=== PATIENT | female | born 1990 | race Caucasian/White ===

== ENCOUNTER 2019-11-21 14:33 | Inpatient (IN) | payer SELFPAY ==
--- NOTE | 2019-11-21 14:46 | PDOC ---
History of Present Illness - General Chief Complaint: Pain Stated Complaint: ABDOMINAL PAIN Time Seen by Provider: 11/21/19 14:40 - History of Present Illness Initial Comments: 11/21/19 15:09 29F with no PMH or hx/o abdominal surgeries presents to the ED with constant right flank pain that radiates to the right groin, starting last Friday. She notes going to urgent care early last week, was given "motrin shot" and felt better for 3 days but pain returned. She reports fever/chills, constipation (last BM 5 days ago). Denies nausea, vomiting, dysuria, abnormal vaginal bleeding or discharge, hematochezia, and hematuria. PMH: as in HPI SH: see below Meds: none Allergies: NKDA Tob/Etoh/Rec drugs: occasional alcohol, neg x2 PCP: [facility] GENERAL/CONSTITUTIONAL: +fever/chills. No weakness. HEENT: No change in vision. No ear pain or discharge. No sore throat. CARDIOVASCULAR: No chest pain or shortness of breath RESPIRATORY: No cough, wheezing, or hemoptysis. GASTROINTESTINAL: No nausea, vomiting, diarrhea; +constipation. GENITOURINARY: No dysuria, frequency, or change in urination. MUSCULOSKELETAL: No joint or muscle swelling or pain. No neck or back pain. SKIN: No rash NEUROLOGIC: No headache, vertigo, loss of consciousness, or change in strength/sensation. ENDOCRINE: No increased thirst. No abnormal weight change HEMATOLOGIC/LYMPHATIC: No anemia, easy bleeding, or history of blood clots. ALLERGIC/IMMUNOLOGIC: No hives or skin allergy. PE GENERAL: Awake, alert, and fully oriented; no acute distress HEAD: No signs of trauma, normocephalic, atraumatic EYES: PERRLA, EOMI, sclera anicteric, conjunctiva clear ENT: Auricles normal inspection, hearing grossly normal, nares patent, moist mucosa, oropharynx clear without exudates. NECK: Normal ROM, supple, no LAD, JVD, or masses HEART: tachycardia, regular rhythm, normal S1/S2, no murmurs, rubs or gallops, peripheral pulses normal and equal bilaterally. LUNGS: No distress, speaks full sentences, clear to auscultation bilaterally ABDOMEN: Soft, mild tenderness in RUQ/RLQ . No guarding, no rebound. No masses. +CVA tenderness (right) PELVIC: no vaginal discharge, some clotting, cervical os closed, no cervical motion tenderness EXTREMITIES: Normal inspection, Normal range of motion, no edema. NEUROLOGICAL: Normal speech, no focal sensorimotor deficits SKIN: Warm, Dry, normal turgor, no rashes or lesions noted Assessment and Plan 1. Pyelonephritis vs infected nephrolithiasis 2. Tubo-ovarian abscess / PID 3. Appendicitis 4. /ectopic Phuc Garcia, PGY1 Emergency Medicine Past History - Medical History Allergies/Adverse Reactions: Allergies Allergy/AdvReac Type Severity Reaction Status Date / Time No Known Allergies Allergy Verified 11/21/19 14:38 Home Medications: Ambulatory Orders NK [No Known Home Medication] 11/21/19 - Reproductive History Is Patient Now?: No - Psycho-Social/Smoking History Smoking History: Never smoked Have you smoked in the past 12 months: No Information on smoking cessation initiated: No - Substance Abuse Hx (Audit-C & DAST Scrn) How often the patient has a drink containing alcohol: Never Score: In Men: 4 or > Positive; In Women: 3 or > Positive: 0 Screen Result (Pos requires Nsg. Audit-10AR): Negative In the last yr the pt used illegal drug/Rx for NonMed reason: No Score: Yes response is considered Positive: 0 Screen Result (Positive result requires Nsg. DAST-10): Negative *Physical Exam - Vital Signs Last Vital Signs Temp Pulse Resp BP Pulse Ox 102.6 F H 125 H 17 121/60 100 11/21/19 14:34 11/21/19 14:34 11/21/19 14:34 11/21/19 14:34 11/21/19 14:34 ED Treatment Course - LABORATORY CBC & Chemistry Diagram: 11/21/19 15:00 11/21/19 15:00 - RADIOLOGY Radiograph Interpretation: 11/21/19 19:07 IMPRESSION: Mild heterogenous enhancement of right kidney, with some perinephric and periureteral stranding, compatible with pyelonephritis, urinary tract infection. No hydronephrosis. One or more of the following dose reduction techniques were used: automated ex posure control, adjustment of the mA and/or kV according to patient size, use of iterative reconstructive technique. THIS DOCUMENT HAS BEEN ELECTRONICALLY SIGNED Sylvester Solorzano MD Medical Decision Making - Medical Decision Making 11/21/19 15:16 29F with no PMH or hx/o abdominal surgeries presents to the ED with constant right flank pain that radiates to the right groin, starting last Friday. She notes going to urgent care early last week, was given "motrin shot" and felt better for 3 days but pain returned. She reports fever/chills, constipation (last BM 5 days ago). On exam, +CVA tenderness (right), RUQ/RLQ tenderess, without rebound or guarding; no cervical motion tenderness Assessment and Plan 1. Pyelonephritis - CVA tenderness; +/- nephrolithiasis - possible with radiation to groin 2. Nephrolithiasis - flank pain and radiation to groin, and 2+ blood on UA 3. Tubo-ovarian abscess / PID - febrile, lower abdominal pain, less likely w/o cervical motion tenderness 4. Appendicitis - fever + RLQ tenderness, possible CVA tenderness if retrocecal appendicitis 5. /ectopic - ruled out, Upreg negative 11/21/19 16:15 - Given 975 tylenol Labs notable for: - mild leukocytosis @ 11.1 - CMP wnl - lipase wnl - UA + blood, nitrite, leukocyte esterace, >9000 bacteria 11/21/19 16:58 - blood cultures sent - started on ceftriaxone and metronidazole 11/21/19 18:09 - given 4mg morphine CT Abdomen/pelvis: Mild heterogenous enhancement of right kidney, with some perinephric and periureteral stranding, compatible with pyelonephritis, urinary tract infection. - unresolved fever, given 650 tylenol Likely pyelonephritis - pt admitted to m/s Discharge - Discharge Information Problems reviewed: Yes Clinical Impression/Diagnosis: Pyelonephritis Condition: Improved - Admission Yes - Follow up/Referral - Patient Discharge Instructions - Post Discharge Activity
[2019-11-21] MEDS ORDERED: ACETAMINOPHEN 500 MG TABLET (FP) PO ONE ×3 (15:01→18:38)
[2019-11-21] MEDS ORDERED: LACTATED RINGERS SOLUTION 1000 ML INFUS.BAG IV ONE ×2 (15:02→18:38)
[2019-11-21] MEDS ORDERED: ACETAMINOPHEN 325 MG TABLET (FP) ONE ×2 (15:10→18:43)
[2019-11-21 15:15] LABS: BASO % 0.1 % (0-2.0); HEMATOCRIT 36.9 % (32.4-45.2); HEMOGLOBIN 12.4 GM/dL (10.7-15.3); LYMPH % 5.1 % (8-40); MCH 30.7 pg (25.7-33.7); MCHC 33.6 g/dl (32.0-36.0); MEAN CELL VOLUME 91.2 fl (80-96); MEAN PLT VOLUME 8.6 fl (7.5-11.1); MONO % 7.1 % (3.8-10.2); NEUT % 87.7 % (42.8-82.8); PLATELET COUNT 149 K/MM3 (134-434); RBC 4.05 M/mm3 (3.60-5.2); WHITE BLOOD COUNT 11.1 K/mm3 (4.0-10.0)
[2019-11-21 15:31] LABS: BILIRUBIN,TOTAL 0.8 mg/dL (0.2-1); BLOOD UREA NITROGEN 15.7 mg/dL (7-18); CALCIUM 8.8 mg/dL (8.5-10.1); CREATININE 1.2 mg/dL (0.55-1.3); POTASSIUM 3.8 mmol/L (3.5-5.1); TOT PROT 7.5 g/dl (6.4-8.2)
--- NOTE | 2019-11-21 16:16 | PDOC ---
Documentation entered by Aly Juan SCRIBE, acting as scribe for Shahida Orozco MD. Shahida Orozco MD: This documentation has been prepared by the [facility] childs Alexis, SCRIBE, under my direction and personally reviewed by me in its entirety. I confirm that the documentation accurately reflects all work, treatment, procedures, and medical decision making performed by me. Attending Attestation - ED Attending Attestation I have performed the following: I have examined & evaluated the patient, The case was reviewed & discussed with the resident, I agree w/resident's findings & plan, Exceptions are as noted - Medical Decision Making 11/21/19 21:52 29 yo female w/ R sided flank pain and abd pain will eval for appendicitis vs pyleonephritis CTAP shows pyelo UA + Plan to tx w/ abx and admit for pain control/ persistent fevers. <Mode Uriarte - Last Filed: 11/21/19 21:52> - Resident Resident Name: Phuc Garcia - ED Attending Attestation I have performed the following: I have examined & evaluated the patient, The case was reviewed & discussed with the resident, I agree w/resident's findings & plan, Exceptions are as noted - HPI HPI: 11/21/19 15:08 The patient is a 29 year old female with no significant past medical history who presents to the emergency department for evaluation of right flank pain that radiates to her right groin which began one week ago. The patient reports pain is constant but worse 2 days ago. She endorses fever, chills, and constipation that began one week ago. She notes going to Urgent Care where she received a motrin shot and a normal UA. LBM: 5 days ago The patient denies chest/abdominal/back pain, cough, and shortness of breath. Denies fever, chills, nausea, vomiting, and/or any GI symptoms. Denies any dysuria, vaginal discharge, vaginal bleeding, or any symptoms. Denies any other symptoms. Allergies: NKA Social Hx: none reported - Physicial Exam PE: 11/22/19 08:33 General: uncomfortable appearing Abdomen: soft, minimal R sided ttp, no rebound, no guarding Back: no CVA tenderness <Shahida Orozco - Last Filed: 11/22/19 08:34> Discharge - Discharge Information Problems reviewed: Yes <Mode Uriarte - Last Filed: 11/21/19 21:52> - Discharge Information Problems reviewed: Yes <Shahida Orozco - Last Filed: 11/22/19 08:34> - Discharge Information Clinical Impression/Diagnosis: Pyelonephritis Condition: Improved
[2019-11-21 16:24] LABS: EPI CELLS 24 /uL (0-25.1); HCG,QUALITATIVE URINE Negative; HYALINE CASTS 2 /uL (0-3.1); PH,URINE 5.5 (5.0-8.0); URINE APPEARANCE CLEAR; URINE BACTERIA >9,000 /uL (0-1359); URINE BILIRUBIN NEGATIVE (NEGATIVE); URINE COLOR YELLOW; URINE GLUCOSE (UA) NEGATIVE (NEGATIVE); URINE KETONE 2+ (NEGATIVE); URINE LEUK ESTERASE 1+ (NEGATIVE); URINE NITRITE POSITIVE (NEGATIVE); URINE PROTEIN TRACE (NEGATIVE); URINE RBC 10 /uL (0-23.9); URINE WBC 55 /uL (0-25.8)
[2019-11-21] MEDS ORDERED: IBUPROFEN 600 MG TABLET (FP) PO ONE ×2 (16:26→17:02)
[2019-11-21] MEDS ORDERED: CEFTRIAXONE 1,000 MG in DEXTROSE 5%-WATER - 50 ML IVPB ONE (16:26)
[2019-11-21] MEDS ORDERED: CEFTRIAXONE 1 GM/50 ML BAG ONE (17:03)
[2019-11-21] MEDS ORDERED: morphine CARPU-JECT 4 MG/1 ML DISP.SYRIN IVPUSH ONE (17:30)
[2019-11-21] MEDS ORDERED: morphine SULFATE 4 MG/ML VIAL ONE (17:40)
--- NOTE | 2019-11-21 20:39 | HP ---
CHIEF COMPLAINT: right sided pain PCP: none HISTORY OF PRESENT ILLNESS: 29 y/o female with no known pmhx presents after being seen in the urgent care on friday for right sided pain, states she was given motrin no antibiotics with worsening right sided pain this am, associated with fevers and chills. Pt denies any dysuria, hematuria but states the pain aegan about 10 days ago, became much worse earleir this week and now with fevers today. Cannot quantify how high the temps were but states she felt very wamr and much sicker this am. No recent travel No sick contacts No similar symptoms in the past ER course was notable for: (1) CT with pyelo findings (2) temps 102-103 (3) Recent Travel: Denies PAST MEDICAL HISTORY: None PAST SURGICAL HISTORY: None Social History: Smoking: Denies Alcohol: Socially Drugs: Denies Allergies No Known Allergies Allergy (Verified 11/21/19 14:38) HOME MEDICATIONS: Home Medications Medication Instructions Recorded NK [No Known Home Medication] 11/21/19 REVIEW OF SYSTEMS CONSTITUTIONAL: POS fever, chills, diaphoresis, generalized weakness, NO malaise, loss of appetite, weight change HEENT: Absent: rhinorrhea, nasal congestion, throat pain, throat swelling, difficulty swallowing, mouth swelling, ear pain, eye pain, visual changes CARDIOVASCULAR: Absent: chest pain, syncope, palpitations, irregular heart rate, lightheadedness, peripheral edema RESPIRATORY: Absent: cough, shortness of breath, dyspnea with exertion, orthopnea, wheezing, stridor, hemoptysis GASTROINTESTINAL: Absent: abdominal pain, abdominal distension, nausea, vomiting, diarrhea, constipation, melena, hematochezia POS RIGHT FLANK PAIN GOING TO THE RIGHT GROIN GENITOURINARY: Absent: dysuria, frequency, urgency, hesitancy, hematuria, POS RIGHT flank pain NO genital pain MUSCULOSKELETAL: Absent: myalgia, arthralgia, joint swelling, back pain, neck pain SKIN: Absent: rash, itching, pallor HEMATOLOGIC/IMMUNOLOGIC: Absent: easy bleeding, easy bruising, lymphadenopathy, frequent infections ENDOCRINE: Absent: unexplained weight gain, unexplained weight loss, heat intolerance, cold intolerance NEUROLOGIC: Absent: headache, focal weakness or paresthesias, dizziness, unsteady gait, seizure, mental status changes, bladder or bowel incontinence PSYCHIATRIC: Absent: anxiety, depression, suicidal or homicidal ideation, hallucinations. PHYSICAL EXAMINATION Vital Signs - 24 hr 11/21/19 11/21/19 11/21/19 14:34 16:21 18:28 Temperature 102.6 F H 103.1 F H 102.9 F H Pulse Rate 125 H Pulse Rate [ 110 H 111 H Left Radial] Respiratory 17 18 18 Rate Blood Pressure 121/60 Blood Pressure 113/57 L 112/56 L [Right Arm] O2 Sat by Pulse 100 98 97 Oximetry (%) GENERAL: Awake, alert, and fully oriented, in no acute distress. HEAD: Normal with no signs of trauma. EYES: extraocular movements intact, sclera anicteric, conjunctiva clear. No lid lag. EARS, NOSE, THROAT: Ears normal, nares patent, oropharynx clear without exudates. Moist mucous membranes. NECK: Normal range of motion, supple without lymphadenopathy, JVD, or masses. LUNGS: Breath sounds equal, clear to auscultation bilaterally. No wheezes, and no crackles. No accessory muscle use. HEART: Regular rate and rhythm, normal S1 and S2 without murmur, rub or gallop. ABDOMEN: Soft, nontender, not distended, normoactive bowel sounds, no guarding, no rebound, no masses. No hepatomegaly or splenomegaly. MUSCULOSKELETAL: Normal range of motion at all joints. No bony deformities or tenderness. POS RIGHT CVA TENDERNESS UPPER EXTREMITIES: 2+ pulses, warm, well-perfused. No cyanosis. No clubbing. No peripheral edema. LOWER EXTREMITIES: 2+ pulses, warm, well-perfused. No calf tenderness. No peripheral edema. NEUROLOGICAL: Cranial nerves II-XII intact. Normal speech. Normal gait. PSYCHIATRIC: Cooperative. Good eye contact. Appropriate mood and affect. SKIN: Warm, dry, normal turgor, no rashes or lesions noted, normal capillary refill. Laboratory Results - last 24 hr 11/21/19 11/21/19 11/21/19 15:00 15:00 15:00 WBC 11.1 H RBC 4.05 Hgb 12.4 Hct 36.9 MCV 91.2 MCH 30.7 MCHC 33.6 RDW 13.0 Plt Count 149 MPV 8.6 Absolute Neuts (auto) 9.7 H Neutrophils % 87.7 H Lymphocytes % 5.1 L Monocytes % 7.1 Eosinophils % 0.0 Basophils % 0.1 Nucleated RBC % 0 Sodium 136 Potassium 3.8 Chloride 105 Carbon Dioxide 22 Anion Gap 9 BUN 15.7 Creatinine 1.2 Est GFR (CKD-EPI)AfAm 70.73 Est GFR (CKD-EPI)NonAf 61.02 Random Glucose 118 H Lactic Acid 1.2 Calcium 8.8 Total Bilirubin 0.8 AST 30 ALT 25 Alkaline Phosphatase 60 Total Protein 7.5 Albumin 4.0 Lipase 132 Urine Color Urine Appearance Urine pH Ur Specific [place] Urine Protein Urine Glucose (UA) Urine Ketones Urine Blood Urine Nitrite Urine Bilirubin Urine Urobilinogen Ur Leukocyte Esterase Urine WBC (Auto) Urine RBC (Auto) Urine Casts (Auto) U Epithel Cells (Auto) Urine Bacteria (Auto) Urine HCG, Qual 11/21/19 16:00 WBC RBC Hgb Hct MCV MCH MCHC RDW Plt Count MPV Absolute Neuts (auto) Neutrophils % Lymphocytes % Monocytes % Eosinophils % Basophils % Nucleated RBC % Sodium Potassium Chloride Carbon Dioxide Anion Gap BUN Creatinine Est GFR (CKD-EPI)AfAm Est GFR (CKD-EPI)NonAf Random Glucose Lactic Acid Calcium Total Bilirubin AST ALT Alkaline Phosphatase Total Protein Albumin Lipase Urine Color Yellow Urine Appearance Clear Urine pH 5.5 Ur Specific [place] 1.021 Urine Protein Trace Urine Glucose (UA) Negative Urine Ketones 2+ H Urine Blood 2+ H Urine Nitrite Positive H Urine Bilirubin Negative Urine Urobilinogen 1.0 Ur Leukocyte Esterase 1+ H Urine WBC (Auto) 55 Urine RBC (Auto) 10 Urine Casts (Auto) 2 U Epithel Cells (Auto) 24 Urine Bacteria (Auto) >9,000 Urine HCG, Qual Negative CT: POS RIGHT PERINEPHRIC STRANDING PER ED -- FINAL STUDY PENDING ASSESSMENT/PLAN: 29 Y/O FEMALE ADMITTED WITH RIGHT PYELONEPHRITIS *RIGHT PYELONEPHRITIS -- PLACE ON ROCEHIN TYLENOL FOR FEVERS PAIN CONTROL LACTIC ACID IS LOW GENEROUS HYDRATION FOR TACHYCARDIA AND INSENSIBLE LOSSES F/U FINAL CT READING *TACHYCARDIA - SECONDARY TO VOLUME CONTRACTION, WILL HYDRATE *LEUKOCYTOSIS - SECONDARY TO PYELO *DVT PROPHY- EARLY AMBULATION. SCDS WHILE IN BED Family Medical History Family History: Denies Problem List - Problem (1) Pyelonephritis Code(s): N12 - TUBULO-INTERSTITIAL NEPHRITIS, NOT SPCF ACUTE OR CHRONIC Visit type - Emergency Visit Emergency Visit: Yes ED Registration Date: 11/21/19 Care time: The patient presented to the Emergency Department on the above date and was hospitalized for further evaluation of their emergent condition. - New Patient This patient is new to me today: Yes Date on this admission: 11/21/19 - Critical Care Critical Care patient: No
[2019-11-21] MEDS: SODIUM CHLORIDE 1,000 ML IV SCH (21:14)
--- NOTE | 2019-11-21 21:52 | PDOC ---
Documentation entered by Aly Juan SCRIBE, acting as scribe for Mode Uriarte DO. Mode Uriarte DO: This documentation has been prepared by the josueibeDrake Alexis, SCRIBE, under my direction and personally reviewed by me in its entirety. I confirm that the documentation accurately reflects all work, treatment, procedures, and medical decision making performed by me. *Physical Exam - Vital Signs Last Vital Signs Temp Pulse Resp BP Pulse Ox 103.1 F H 110 H 18 113/57 L 98 11/21/19 16:21 11/21/19 16:21 11/21/19 16:21 11/21/19 16:21 11/21/19 16:21 ED Treatment Course - LABORATORY CBC & Chemistry Diagram: 11/21/19 15:00 11/21/19 15:00 - ADDITIONAL ORDERS Additional order review: Laboratory Results 11/21/19 11/21/19 11/21/19 16:00 15:00 15:00 Sodium 136 Potassium 3.8 Chloride 105 Carbon Dioxide 22 Anion Gap 9 BUN 15.7 Creatinine 1.2 Est GFR (CKD-EPI)AfAm 70.73 Est GFR (CKD-EPI)NonAf 61.02 Random Glucose 118 H Lactic Acid 1.2 Calcium 8.8 Total Bilirubin 0.8 AST 30 ALT 25 Alkaline Phosphatase 60 Total Protein 7.5 Albumin 4.0 Lipase 132 Urine Color Yellow Urine Appearance Clear Urine pH 5.5 Ur Specific [place] 1.021 Urine Protein Trace Urine Glucose (UA) Negative Urine Ketones 2+ H Urine Blood 2+ H Urine Nitrite Positive H Urine Bilirubin Negative Urine Urobilinogen 1.0 Ur Leukocyte Esterase 1+ H Urine WBC (Auto) 55 Urine RBC (Auto) 10 Urine Casts (Auto) 2 U Epithel Cells (Auto) 24 Urine Bacteria (Auto) >9,000 Urine HCG, Qual Negative 11/21/19 15:00 RBC 4.05 MCV 91.2 MCHC 33.6 RDW 13.0 MPV 8.6 Neutrophils % 87.7 H Lymphocytes % 5.1 L Monocytes % 7.1 Eosinophils % 0.0 Basophils % 0.1 - Medications Given in the ED: ED Medications Discontinued Medications Generic Name Dose Route Start Last Admin Trade Name Freq PRN Reason Stop Dose Admin Acetaminophen 1,000 mg 11/21/19 15:01 09/06/20 15:17 Tylenol - PO 11/21/19 15:02 Not Given ONCE ONE Acetaminophen 975 mg 11/21/19 15:02 11/21/19 15:16 Tylenol - PO 11/21/19 15:03 975 mg ONCE ONE Administration Lactated Ringer's 1,000 ml 11/21/19 15:02 11/21/19 15:16 Lactated Ringers Solution IV 11/21/19 15:03 1,000 ml NOW ONE Administration Medical Decision Making - Medical Decision Making 11/21/19 16:31 29 yo female with 1 week of worsening right sided abdominal and flank pain without urinary symptoms Sign out follow up imaging and disposition appropriate R sided CVA tenderness and Mcburney's point tenderness mild Positive rovsing's signs Pyelonephritis vs appendicitis Patient is febrile tachycardic Will plan for addition antipyretics Motrin 600mg Reassess pain control IV anti for positive UA
[2019-11-22 00:07] VITALS: BMI 21.4
[2019-11-22] MEDS: ACETAMINOPHEN 325 MG TABLET (FP) PO PRN ×4 (00:11→18:58)
[2019-11-22] MEDS ORDERED: morphine SULFATE 4 MG/ML VIAL IVPUSH ONE (06:31)
[2019-11-22 08:38] LABS: HEMATOCRIT 33.1 % (32.4-45.2); MCH 30.1 pg (25.7-33.7); MCHC 33.3 g/dl (32.0-36.0); MEAN CELL VOLUME 90.6 fl (80-96); MEAN PLT VOLUME 8.6 fl (7.5-11.1); PLATELET COUNT 125 K/MM3 (134-434); RBC 3.65 M/mm3 (3.60-5.2); WHITE BLOOD COUNT 10.6 K/mm3 (4.0-10.0)
[2019-11-22 08:56] LABS: BLOOD UREA NITROGEN 10.7 mg/dL (7-18); CALCIUM 8.2 mg/dL (8.5-10.1); CREATININE 0.8 mg/dL (0.55-1.3); POTASSIUM 3.8 mmol/L (3.5-5.1)
[2019-11-22] MEDS ORDERED: DEXTROSE 5%-WATER - 50 ML IVPB ONE (09:45)
[2019-11-22] MEDS ORDERED: cefTRIAXone SODIUM 1 GM VIAL ONE (09:45)
[2019-11-22] MEDS: CEFTRIAXONE 1 GM in DEXTROSE 5%-WATER - 50 ML IVPB SCH (09:50)
[2019-11-22] MEDS: SODIUM CHLORIDE 1,000 ML IV SCH ×2 (09:51→22:22)
--- NOTE | 2019-11-22 10:50 | PN ---
Physical Exam: SUBJECTIVE: Patient seen and examined at bedside- patient states she is feeling better; she received morphine overnight for pain and now her pain is like a 2- 3/10 she denies any urinary symptoms; she is starting to get her appetite back- she denies any CP/SOB/NV she remained afebrile overnight OBJECTIVE: Vital Signs Period Temp Pulse Resp BP Sys/Alvarez Pulse Ox Last 24 Hr 98.1 F-103.1 F 72-125 16-20 91-121/40-68 97-100 GENERAL: The patient is awake, alert, and fully oriented, in no acute distress. EYES: PEERLA; EOMI; no scleral icterus NECK: no JVD; no lymphadenopathy LUNGS: CTA B.L no rales, rhonchi or wheezing HEART: RRR, S1, S2 without murmur, rub or gallop. ABDOMEN: Soft, NT ND +BS in all 4 quadrants MUSCULOSKELETAL: .no R sided CVA tenderness; EXTREMITIES: 2+ pulses, warm, well-perfused, no edema. NEUROLOGICAL: Cranial nerves II through XII grossly intact. Normal speech, gait not observed. PSYCH: Normal mood, normal affect. SKIN: Warm, dry, normal turgor, no rashes or lesions noted Laboratory Results - last 24 hr 11/21/19 11/21/19 11/21/19 15:00 15:00 15:00 WBC 11.1 H RBC 4.05 Hgb 12.4 Hct 36.9 MCV 91.2 MCH 30.7 MCHC 33.6 RDW 13.0 Plt Count 149 MPV 8.6 Absolute Neuts (auto) 9.7 H Neutrophils % 87.7 H Lymphocytes % 5.1 L Monocytes % 7.1 Eosinophils % 0.0 Basophils % 0.1 Nucleated RBC % 0 Sodium 136 Potassium 3.8 Chloride 105 Carbon Dioxide 22 Anion Gap 9 BUN 15.7 Creatinine 1.2 Est GFR (CKD-EPI)AfAm 70.73 Est GFR (CKD-EPI)NonAf 61.02 Random Glucose 118 H Lactic Acid 1.2 Calcium 8.8 Total Bilirubin 0.8 AST 30 ALT 25 Alkaline Phosphatase 60 Total Protein 7.5 Albumin 4.0 Lipase 132 Urine Color Urine Appearance Urine pH Ur Specific [place] Urine Protein Urine Glucose (UA) Urine Ketones Urine Blood Urine Nitrite Urine Bilirubin Urine Urobilinogen Ur Leukocyte Esterase Urine WBC (Auto) Urine RBC (Auto) Urine Casts (Auto) U Epithel Cells (Auto) Urine Bacteria (Auto) Urine HCG, Qual 11/21/19 11/22/19 11/22/19 16:00 07:50 07:50 WBC 10.6 H RBC 3.65 Hgb 11.0 Hct 33.1 MCV 90.6 MCH 30.1 MCHC 33.3 RDW 13.0 Plt Count 125 L MPV 8.6 Absolute Neuts (auto) Neutrophils % Lymphocytes % Monocytes % Eosinophils % Basophils % Nucleated RBC % Sodium 141 Potassium 3.8 Chloride 110 H Carbon Dioxide 22 Anion Gap 9 BUN 10.7 Creatinine 0.8 Est GFR (CKD-EPI)AfAm 115.47 Est GFR (CKD-EPI)NonAf 99.63 Random Glucose 104 Lactic Acid Calcium 8.2 L Total Bilirubin AST ALT Alkaline Phosphatase Total Protein Albumin Lipase Urine Color Yellow Urine Appearance Clear Urine pH 5.5 Ur Specific [place] 1.021 Urine Protein Trace Urine Glucose (UA) Negative Urine Ketones 2+ H Urine Blood 2+ H Urine Nitrite Positive H Urine Bilirubin Negative Urine Urobilinogen 1.0 Ur Leukocyte Esterase 1+ H Urine WBC (Auto) 55 Urine RBC (Auto) 10 Urine Casts (Auto) 2 U Epithel Cells (Auto) 24 Urine Bacteria (Auto) >9,000 Urine HCG, Qual Negative Active Medications Generic Name Dose Route Start Last Admin Trade Name Guyq PRN Reason Stop Dose Admin Acetaminophen 650 mg 11/21/19 20:24 11/22/19 03:59 Tylenol - PO 650 mg Q4H PRN Administration FEVER Ceftriaxone Sodium 1 gm/ 50 mls @ 100 mls/hr 11/22/19 10:00 11/22/19 09:50 Dextrose IVPB 100 mls/hr DAILY CAMRYN Administration Protocol Sodium Chloride 1,000 mls @ 100 mls/hr 11/21/19 20:45 11/22/19 09:51 Normal Saline - IV 100 mls/hr ASDIR CAMRYN Administration ASSESSMENT/PLAN: 29 y/o female with no known pmhx presents after being seen in the urgent care on friday for right sided back pain, with associated fever and chills found to sepsis 2/2 pyelonephritis # Sepsis 2/2 Pyelonephritis AB/Pelvis CT shows minimal stranding around the right kindye; no hydro or stones present; moderate retained stool in colon -c/w ceftriaxone -f/u urine cx -can decrease IVF given that patient is now eating/drinking feeling better -morphine and tylenol PRN for pain -monitor hemodynamics -leukocytosis improving -bowel regimen f/e/n IVF monitor electrolytes regular diet dvt ppx: scds Problem List - Problems (1) Pyelonephritis Code(s): N12 - TUBULO-INTERSTITIAL NEPHRITIS, NOT SPCF ACUTE OR CHRONIC Visit type - Emergency Visit Emergency Visit: Yes ED Registration Date: 11/21/19 Care time: The patient presented to the Emergency Department on the above date and was hospitalized for further evaluation of their emergent condition. - New Patient This patient is new to me today: Yes Date on this admission: 11/22/19 - Critical Care Critical Care patient: No ATTENDING PHYSICIAN STATEMENT I saw and evaluated the patient. I reviewed the resident's note and discussed the case with the resident. I agree with the resident's findings and plan as documented. SUBJECTIVE: OBJECTIVE: ASSESSMENT AND PLAN:
[2019-11-22] MEDS: SENNOSIDES 8.6MG TABLET (FP) PO SCH ×2 (11:42→22:22)
--- NOTE | 2019-11-22 12:18 | PN ---
Teaching Attending Note Name of Resident: Sandra Morrison ATTENDING PHYSICIAN STATEMENT I saw and evaluated the patient. I reviewed the resident's note and discussed the case with the resident. I agree with the resident's findings and plan as documented. SUBJECTIVE: OBJECTIVE: ASSESSMENT AND PLAN: 29 Y/O female admitted with female admitted with acute right pyelonephritis *Right pyelonephritis - Continue on Rocephin/anti-pyretics/IV fluids - pain control *Tachycardia- likely secondary to volume contraction , will hydrate *Leukocytosis - likely secondary to above - repeat labs in AM *DVT Prophylaxisis- ok to ambulate
[2019-11-22] MEDS ORDERED: ACETAMINOPHEN 1000 MG/100 ML VIAL (NON FORMULARY) IVPB ONE (13:50)
[2019-11-22] MEDS ORDERED: morphine SULFATE 4 MG/ML VIAL IVPUSH PRN (21:40)
[2019-11-23] MEDS ORDERED: MORPHINE SULFATE 2 MG/ML VIAL IVPUSH PRN (03:29)
[2019-11-23] MEDS: ACETAMINOPHEN 325 MG TABLET (FP) PO PRN ×2 (05:59→13:02)
[2019-11-23] MEDS ORDERED: POLYETHYLENE GLYCOL 3350 119 GM BTL PO ONE (08:24)
[2019-11-23] MEDS ORDERED: MORPHINE SULFATE 2 MG/ML VIAL IM PRN (08:27)
[2019-11-23 08:43] LABS: BASO % 0.1 % (0-2.0); EOS % 0.2 % (0-4.5); HEMATOCRIT 31.4 % (32.4-45.2); HEMOGLOBIN 10.5 GM/dL (10.7-15.3); LYMPH % 12.4 % (8-40); MCH 29.9 pg (25.7-33.7); MCHC 33.3 g/dl (32.0-36.0); MEAN PLT VOLUME 8.7 fl (7.5-11.1); MONO % 11.6 % (3.8-10.2); NEUT % 75.7 % (42.8-82.8); PLATELET COUNT 127 K/MM3 (134-434); RDW 12.7 % (11.6-15.6); WHITE BLOOD COUNT 8.5 K/mm3 (4.0-10.0)
[2019-11-23 08:48] LABS: POTASSIUM 3.5 mmol/L (3.5-5.1)
[2019-11-23 09:00] LABS: ALBUMIN 2.9 g/dl (3.4-5.0); BILIRUBIN,TOTAL 0.8 mg/dL (0.2-1); BLOOD UREA NITROGEN 7.8 mg/dL (7-18); CALCIUM 8.1 mg/dL (8.5-10.1); CREATININE 0.8 mg/dL (0.55-1.3); MAGNESIUM 2.3 mg/dL (1.8-2.4); PHOSPHOROUS 2.5 mg/dL (2.5-4.9); TOT PROT 5.9 g/dl (6.4-8.2)
[2019-11-23] MEDS ORDERED: DEXTROSE 5%-WATER - 50 ML IVPB ONE (09:10)
[2019-11-23] MEDS ORDERED: cefTRIAXone SODIUM 1 GM VIAL ONE (09:10)
[2019-11-23] MEDS: CEFTRIAXONE 1 GM in DEXTROSE 5%-WATER - 50 ML IVPB SCH (09:13)
[2019-11-23] MEDS: DOCUSATE SODIUM 100 MG CAPSULE (FP) PO SCH (09:13)
[2019-11-23] MEDS: SENNOSIDES 8.6MG TABLET (FP) PO SCH ×2 (09:13→21:56)
[2019-11-23] MEDS: SODIUM CHLORIDE 1,000 ML IV SCH (13:02)
--- NOTE | 2019-11-23 13:21 | PN ---
Physical Exam: SUBJECTIVE: Patient seen and examined, in no acute distress, speaking in full sentences. Denies any urinary pain, discharge, blood. Endorses strange urinary odor. Denies CP, SoB, fever/chils. OBJECTIVE: Vital Signs Period Temp Pulse Resp BP Sys/Alvarez Pulse Ox Last 24 Hr 98.5 F-103.0 F 71-115 20-20 96-126/51-72 98-100 GENERAL: The patient is awake, alert, and fully oriented, in no acute distress. HEAD: Normal with no signs of trauma. EYES: PERRL, extraocular movements intact, sclera anicteric, conjunctiva clear. No ptosis. ENT: Ears normal, nares patent, oropharynx clear without exudates, moist mucous membranes. NECK: Trachea midline, full range of motion, supple. LUNGS: Breath sounds equal, clear to auscultation bilaterally, no wheezes, no crackles, no accessory muscle use. HEART: Regular rate and rhythm, S1, S2 without murmur, rub or gallop. ABDOMEN: Right sided CVA tenderness, tenderness in RLQ, no signs of peritonitis EXTREMITIES: 2+ pulses, warm, well-perfused, no edema. NEUROLOGICAL: Normal speech, gait not observed. PSYCH: Normal mood, normal affect. SKIN: Warm, dry, normal turgor, no rashes or lesions noted Laboratory Results - last 24 hr CBC, BMP 11/23/19 08:06 11/23/19 08:06 Active Medications Generic Name Dose Route Start Last Admin Trade Name Freq PRN Reason Stop Dose Admin Acetaminophen 650 mg 11/21/19 20:24 11/23/19 13:02 Tylenol - PO 650 mg Q4H PRN Administration FEVER Docusate Sodium 100 mg 11/23/19 10:00 11/23/19 09:13 Colace - PO 100 mg DAILY CAMRYN Administration Sodium Chloride 1,000 mls @ 100 mls/hr 11/21/19 20:45 11/23/19 13:02 Normal Saline - IV 100 mls/hr ASDIR CAMRYN Administration Cefepime HCl 1 gm/ Dextrose 100 mls @ 100 mls/hr 11/23/19 18:00 IVPB Q8H-IV CAMRYN Protocol Morphine Sulfate 2 mg 11/23/19 12:24 Morphine Sulfate IV Q6H PRN PAIN LEVEL 7 - 10 Senna 1 tab 11/22/19 11:00 11/23/19 09:13 Senna - PO 1 tab BID CAMRYN Administration ASSESSMENT/PLAN: 29 y/o female with PMHx of previous UTI in April 2019 presents after being seen in the urgent care for right sided back pain, with associated fever and chills found to septic 2/2 pyelonephritis Sepsis 2/2 Pyelonephritis -Currently Afebrile -CT Abdomen Pelvs: Minimal stranding around the right kidney; no hydronephrosis or stones present; moderate retained stool in colon -Per ID: Start Cefepime -FU Urine Cx -FU Chl/Gilbert Cx -Morphine 2mg Q6 PRN -Tylenol 650mg PRN -Monitor Leukocytosis, currently resolved. Anemia -Monitor Hgb -Possibly dilutional Constipation -Likely 2/2 Morphine -Senna BID -Colace FEN IVF: NS Monitor Lytes Regular diet PPx: scds Visit type - Emergency Visit Emergency Visit: No - New Patient This patient is new to me today: Yes Date on this admission: 11/23/19 - Critical Care Critical Care patient: No - Discharge Referral Referred to [facility] Med P.C.: No ATTENDING PHYSICIAN STATEMENT I saw and evaluated the patient. I reviewed the resident's note and discussed the case with the resident. I agree with the resident's findings and plan as documented. SUBJECTIVE: OBJECTIVE: ASSESSMENT AND PLAN:
--- NOTE | 2019-11-23 14:28 | PN ---
Progress Note (short form) - Note Progress Note: ID CONSULT DICTATED ACUTE R PYELONEPHRITIS UTI FEVER/LEUKOCYTOSIS IMPROVED THROMBOCYTOPENIA PENDING C/S EMPIRIC CEFEPIME
[2019-11-23] MEDS ORDERED: CEFEPIME HCL 1 GM VIAL (RESTRICTED TO ID) ONE (17:46)
[2019-11-23] MEDS ORDERED: DEXTROSE 5%-WATER 100 ML IVPB ONE (17:46)
[2019-11-23] MEDS: MORPHINE SULFATE 2 MG/ML VIAL IV PRN (17:58)
[2019-11-23] MEDS: CEFEPIME 1 GM in DEXTROSE 5%-WATER 100 ML IVPB SCH (17:58)
--- NOTE | 2019-11-23 19:05 | PN ---
Teaching Attending Note Name of Resident: Arvind Ortiz ATTENDING PHYSICIAN STATEMENT I saw and evaluated the patient. I reviewed the resident's note and discussed the case with the resident. I agree with the resident's findings and plan as documented. SUBJECTIVE: Patient is c/o right CVA tenderness. OBJECTIVE: Vital Signs Temperature 99.5 F 11/23/19 16:51 Pulse Rate 80 11/23/19 16:51 Respiratory Rate 20 11/23/19 16:51 Blood Pressure 106/60 11/23/19 16:51 O2 Sat by Pulse Oximetry (%) 76 L 11/23/19 16:51 PE: right CVA tenderness rest per resident's note CBCD WBC 8.5 K/mm3 (4.0-10.0) 11/23/19 08:06 RBC 3.50 M/mm3 (3.60-5.2) L 11/23/19 08:06 Hgb 10.5 GM/dL (10.7-15.3) L 11/23/19 08:06 Hct 31.4 % (32.4-45.2) L 11/23/19 08:06 MCV 90.0 fl (80-96) 11/23/19 08:06 MCHC 33.3 g/dl (32.0-36.0) 11/23/19 08:06 RDW 12.7 % (11.6-15.6) 11/23/19 08:06 Plt Count 127 K/MM3 (134-434) L 11/23/19 08:06 MPV 8.7 fl (7.5-11.1) 11/23/19 08:06 CMP Sodium 138 mmol/L (136-145) 11/23/19 08:06 Potassium 3.5 mmol/L (3.5-5.1) 11/23/19 08:06 Chloride 107 mmol/L (98-107) 11/23/19 08:06 Carbon Dioxide 22 mmol/L (21-32) 11/23/19 08:06 Anion Gap 9 MMOL/L (8-16) 11/23/19 08:06 BUN 7.8 mg/dL (7-18) 11/23/19 08:06 Creatinine 0.8 mg/dL (0.55-1.3) 11/23/19 08:06 Random Glucose 88 mg/dL (74-106) 11/23/19 08:06 Calcium 8.1 mg/dL (8.5-10.1) L 11/23/19 08:06 Total Bilirubin 0.8 mg/dL (0.2-1) 11/23/19 08:06 AST 19 U/L (15-37) 11/23/19 08:06 ALT 21 U/L (13-61) 11/23/19 08:06 Alkaline Phosphatase 45 U/L (45-117) 11/23/19 08:06 Total Protein 5.9 g/dl (6.4-8.2) L 11/23/19 08:06 Albumin 2.9 g/dl (3.4-5.0) L 11/23/19 08:06 Microbiology 11/21/19 16:48 Blood - Peripheral Venous Blood Culture - Preliminary NO GROWTH OBTAINED AFTER 48 HOURS, INCUBATION TO CONTINUE FOR 3 DAYS. 11/21/19 16:48 Blood - Peripheral Venous Blood Culture - Preliminary NO GROWTH OBTAINED AFTER 48 HOURS, INCUBATION TO CONTINUE FOR 3 DAYS. 11/21/19 16:00 Urine - Urine Clean Catch Urine Culture - Preliminary Non Lactose Fermenting Gnb ASSESSMENT AND PLAN: 29 y/o female with PMHx of previous UTI in April 2019 presents after being seen in the urgent care for right sided back pain, with associated fever and chills found to septic 2/2 pyelonephritis #Sepsis due to Pyelonephritis on I V rocephin , Id on the case , follow the cx #Anemia :Monitor Hgb #Constipation :Senna ,Colace continue PPx: scds
[2019-11-24] MEDS ORDERED: DEXTROSE 5%-WATER 100 ML IVPB ONE ×3 (01:27→15:49)
[2019-11-24] MEDS ORDERED: CEFEPIME HCL 1 GM VIAL (RESTRICTED TO ID) ONE ×3 (01:27→15:49)
[2019-11-24] MEDS: CEFEPIME 1 GM in DEXTROSE 5%-WATER 100 ML IVPB SCH ×2 (01:43→09:17)
[2019-11-24] MEDS: MORPHINE SULFATE 2 MG/ML VIAL IV PRN (01:43)
[2019-11-24] MEDS: ACETAMINOPHEN 325 MG TABLET (FP) PO PRN ×2 (02:59→09:25)
[2019-11-24] MEDS: SODIUM CHLORIDE 1,000 ML IV SCH ×2 (03:26→14:23)
[2019-11-24] MEDS ORDERED: POLYETHYLENE GLYCOL 3350 119 GM BTL PO PRN (06:35)
[2019-11-24 08:24] LABS: BASO % 0.1 % (0-2.0); HEMATOCRIT 36.4 % (32.4-45.2); LYMPH % 22.5 % (8-40); MEAN CELL VOLUME 90.8 fl (80-96); MEAN PLT VOLUME 8.5 fl (7.5-11.1); MONO % 11.6 % (3.8-10.2); NEUT % 64.8 % (42.8-82.8); PLATELET COUNT 188 K/MM3 (134-434); RBC 4.01 M/mm3 (3.60-5.2); RDW 13.1 % (11.6-15.6); WHITE BLOOD COUNT 6.9 K/mm3 (4.0-10.0)
[2019-11-24 08:31] LABS: ALBUMIN 3.3 g/dl (3.4-5.0); BILIRUBIN,TOTAL 0.4 mg/dL (0.2-1); BLOOD UREA NITROGEN 6.3 mg/dL (7-18); CALCIUM 8.9 mg/dL (8.5-10.1); CREATININE 0.8 mg/dL (0.55-1.3); POTASSIUM 4.4 mmol/L (3.5-5.1); TOT PROT 6.9 g/dl (6.4-8.2)
[2019-11-24] MEDS: SENNOSIDES 8.6MG TABLET (FP) PO SCH (09:17)
[2019-11-24] MEDS: DOCUSATE SODIUM 100 MG CAPSULE (FP) PO SCH (09:17)
[2019-11-24] MEDS ORDERED: CEFTRIAXONE 2 GM in DEXTROSE 5%-WATER 100 ML IVPB ONE (10:00)
--- NOTE | 2019-11-24 13:45 | PN ---
Physical Exam: SUBJECTIVE: Patient seen and examined OBJECTIVE: Vital Signs Period Temp Pulse Resp BP Sys/Alvarez Pulse Ox Last 24 Hr 98.3 F-99.5 F 72-85 20-20 105-110/58-60 96-99 GENERAL: The patient is awake, alert, and fully oriented, in no acute distress. HEAD: Normal with no signs of trauma. EYES: PERRL, extraocular movements intact, sclera anicteric, conjunctiva clear. No ptosis. ENT: Ears normal, nares patent, oropharynx clear without exudates, moist mucous membranes. NECK: Trachea midline, full range of motion, supple. LUNGS: Breath sounds equal, clear to auscultation bilaterally, no wheezes, no crackles, no accessory muscle use. HEART: Regular rate and rhythm, S1, S2 without murmur, rub or gallop. ABDOMEN: Soft, nontender, nondistended, normoactive bowel sounds, no guarding, no rebound, no hepatosplenomegaly, no masses. EXTREMITIES: 2+ pulses, warm, well-perfused, no edema. NEUROLOGICAL: Cranial nerves II through XII grossly intact. Normal speech, gait not observed. PSYCH: Normal mood, normal affect. SKIN: Warm, dry, normal turgor, no rashes or lesions noted Laboratory Results - last 24 hr 11/21/19 11/24/19 11/24/19 16:00 07:20 07:20 WBC 6.9 RBC 4.01 Hgb 12.0 Hct 36.4 D MCV 90.8 MCH 30.0 MCHC 33.0 RDW 13.1 Plt Count 188 D MPV 8.5 Absolute Neuts (auto) 4.5 Neutrophils % 64.8 Lymphocytes % 22.5 D Monocytes % 11.6 H Eosinophils % 1.0 D Basophils % 0.1 Nucleated RBC % 0 Sodium 140 Potassium 4.4 Chloride 108 H Carbon Dioxide 26 Anion Gap 6 L BUN 6.3 L Creatinine 0.8 Est GFR (CKD-EPI)AfAm 115.47 Est GFR (CKD-EPI)NonAf 99.63 Random Glucose 85 Calcium 8.9 Total Bilirubin 0.4 AST 19 ALT 27 Alkaline Phosphatase 56 Total Protein 6.9 Albumin 3.3 L C. trachomatis (WYATT) Negative N. gonorrhoeae (WYATT) Negative Active Medications Generic Name Dose Route Start Last Admin Trade Name Freq PRN Reason Stop Dose Admin Acetaminophen 650 mg 11/21/19 20:24 11/24/19 09:25 Tylenol - PO 650 mg Q4H PRN Administration FEVER Docusate Sodium 100 mg 11/23/19 10:00 11/24/19 09:17 Colace - PO 100 mg DAILY CAMRYN Administration Sodium Chloride 1,000 mls @ 100 mls/hr 11/21/19 20:45 11/24/19 03:26 Normal Saline - IV 100 mls/hr ASDIR CAMRYN Administration Cefepime HCl 1 gm/ Dextrose 100 mls @ 100 mls/hr 11/23/19 18:00 11/24/19 09:17 IVPB 100 mls/hr Q8H-IV CAMRYN Administration Protocol Morphine Sulfate 2 mg 11/23/19 12:24 11/24/19 01:43 Morphine Sulfate IV 2 mg Q6H PRN Administration PAIN LEVEL 7 - 10 Polyethylene Glycol 17 gm 11/24/19 06:35 11/24/19 09:24 Miralax (For Daily Use) - PO 17 gm BID PRN Administration CONSTIPATION Senna 1 tab 11/22/19 11:00 11/24/19 09:17 Senna - PO 1 tab BID CAMRYN Administration ASSESSMENT/PLAN: ATTENDING PHYSICIAN STATEMENT I saw and evaluated the patient. I reviewed the resident's note and discussed the case with the resident. I agree with the resident's findings and plan as documented. SUBJECTIVE: OBJECTIVE: ASSESSMENT AND PLAN:
[2019-11-24 15:21] VITALS: BP 109/65; PULSE 82; TEMP 98.2
[2019-11-24] MEDS ORDERED: CEFEPIME 1 GM in DEXTROSE 5%-WATER 100 ML IVPB SCH (16:00)
--- NOTE | 2019-11-24 17:29 | PN ---
Teaching Attending Note Name of Resident: Arvind Ortiz ATTENDING PHYSICIAN STATEMENT I saw and evaluated the patient. I reviewed the resident's note and discussed the case with the resident. I agree with the resident's findings and plan as documented. SUBJECTIVE: Patient is feeling better today . less pain 3-410 OBJECTIVE: Vital Signs Temperature 98.2 F 11/24/19 15:00 Pulse Rate 82 11/24/19 15:00 Respiratory Rate 20 11/24/19 15:00 Blood Pressure 109/65 11/24/19 15:00 O2 Sat by Pulse Oximetry (%) 100 11/24/19 15:00 PE: per resident's note less Cva tenderness 10 on the right side CBCD WBC 6.9 K/mm3 (4.0-10.0) 11/24/19 07:20 RBC 4.01 M/mm3 (3.60-5.2) 11/24/19 07:20 Hgb 12.0 GM/dL (10.7-15.3) 11/24/19 07:20 Hct 36.4 % (32.4-45.2) D 11/24/19 07:20 MCV 90.8 fl (80-96) 11/24/19 07:20 MCHC 33.0 g/dl (32.0-36.0) 11/24/19 07:20 RDW 13.1 % (11.6-15.6) 11/24/19 07:20 Plt Count 188 K/MM3 (134-434) D 11/24/19 07:20 MPV 8.5 fl (7.5-11.1) 11/24/19 07:20 CMP Sodium 140 mmol/L (136-145) 11/24/19 07:20 Potassium 4.4 mmol/L (3.5-5.1) 11/24/19 07:20 Chloride 108 mmol/L (98-107) H 11/24/19 07:20 Carbon Dioxide 26 mmol/L (21-32) 11/24/19 07:20 Anion Gap 6 MMOL/L (8-16) L 11/24/19 07:20 BUN 6.3 mg/dL (7-18) L 11/24/19 07:20 Creatinine 0.8 mg/dL (0.55-1.3) 11/24/19 07:20 Random Glucose 85 mg/dL (74-106) 11/24/19 07:20 Calcium 8.9 mg/dL (8.5-10.1) 11/24/19 07:20 Total Bilirubin 0.4 mg/dL (0.2-1) 11/24/19 07:20 AST 19 U/L (15-37) 11/24/19 07:20 ALT 27 U/L (13-61) 11/24/19 07:20 Alkaline Phosphatase 56 U/L (45-117) 11/24/19 07:20 Total Protein 6.9 g/dl (6.4-8.2) 11/24/19 07:20 Albumin 3.3 g/dl (3.4-5.0) L 11/24/19 07:20 Home Medications Medication Instructions Recorded Lactobacillus Acidophilus 1 each PO DAILY 30 Days #30 tablet 11/24/19 [Acidophilus] Levofloxacin [Levaquin] 500 mg PO DAILY 7 Days #7 tablet 11/24/19 Microbiology 11/21/19 16:48 Blood - Peripheral Venous Blood Culture - Preliminary NO GROWTH OBTAINED AFTER 72 HOURS, INCUBATION TO CONTINUE FOR 2 DAYS. 11/21/19 16:48 Blood - Peripheral Venous Blood Culture - Preliminary NO GROWTH OBTAINED AFTER 72 HOURS, INCUBATION TO CONTINUE FOR 2 DAYS. 11/21/19 16:00 Urine - Urine Clean Catch Urine Culture - Final Escherichia Coli ASSESSMENT AND PLAN: 29 y/o female with PMHx of previous UTI in April 2019 presents after being seen in the urgent care for right sided back pain, with associated fever and chills found to septic 2/2 pyelonephritis #Sepsis due to Pyelonephritis on IV Cefepime, as per ID to continue with 7 more days of oral Levaquin 500mg , cx is sensitive to everything #hemoglobin stable #Constipation :Senna ,Colace continue PPx: scds test is negative, follow up with ID in a week period
--- NOTE | 2019-11-24 17:49 | DS ---
Physical Exam: SUBJECTIVE: Patient seen and examined this morning, in no acute distress. Abdominal pain greatly decreased, flank pain greatly decreased. No fevers. Denies CP, SoB, N/V/F/C OBJECTIVE: Vital Signs Period Temp Pulse Resp BP Sys/Alvarez Pulse Ox Last 24 Hr 98.2 F-98.6 F 72-85 20-20 105-110/58-65 96-100 PHYSICAL EXAM GENERAL: The patient is awake, alert, and fully oriented, in no acute distress. HEAD: Normal with no signs of trauma. EYES: PERRL, extraocular movements intact, sclera anicteric, conjunctiva clear. ENT: Ears normal, nares patent, oropharynx clear without exudates, moist mucous membranes. NECK: Trachea midline, full range of motion, supple. LUNGS: Breath sounds equal, clear to auscultation bilaterally, no wheezes, no crackles, no accessory muscle use. HEART: Regular rate and rhythm, S1, S2 without murmur, rub or gallop. ABDOMEN: Mild tenderness EXTREMITIES: 2+ pulses, warm, well-perfused, no edema. NEUROLOGICAL: Cranial nerves II through XII grossly intact. Normal speech, gait not observed. PSYCH: Normal mood, normal affect. SKIN: Warm, dry, normal turgor, no rashes or lesions noted. LABS Laboratory Results - last 24 hr 11/21/19 11/24/19 11/24/19 16:00 07:20 07:20 WBC 6.9 RBC 4.01 Hgb 12.0 Hct 36.4 D MCV 90.8 MCH 30.0 MCHC 33.0 RDW 13.1 Plt Count 188 D MPV 8.5 Absolute Neuts (auto) 4.5 Neutrophils % 64.8 Lymphocytes % 22.5 D Monocytes % 11.6 H Eosinophils % 1.0 D Basophils % 0.1 Nucleated RBC % 0 Sodium 140 Potassium 4.4 Chloride 108 H Carbon Dioxide 26 Anion Gap 6 L BUN 6.3 L Creatinine 0.8 Est GFR (CKD-EPI)AfAm 115.47 Est GFR (CKD-EPI)NonAf 99.63 Random Glucose 85 Calcium 8.9 Total Bilirubin 0.4 AST 19 ALT 27 Alkaline Phosphatase 56 Total Protein 6.9 Albumin 3.3 L C. trachomatis (WYATT) Negative N. gonorrhoeae (WYATT) Negative HOSPITAL COURSE: Date of Admission:11/21/19 CT Abdomen Pelvis: Moderate amount of retained stool throughout the colon Minimal amount of stranding surrounding right kidney and a renal infection cannot be excluded Moderate amount of gastric distention Date of Discharge: 11/24/19 29 y/o female with PMHx of previous UTIs presented to the ED after being seen in the urgent care for right sided pain. She was given motrin without antibiotics and endorsed increasing right sided pain in the morning, associated with fevers and chills. Pt denied any dysuria, hematuria, sick contacts, or recent travel. Her ED course was notable for Tmax 102-[address] imaging consistent with R Pyelonephritis. Ptn was admitted to the floors where she was started on Cefepime per ID after Cx were taken. Ptn improved with abatement of fevers. Pain control with morphine and tylenol. Cultures came back growing lopez sensitive Ecoli. Following stabilization, ptn was DCd on Levaquin 500mg Qdaily for 7days and Lactobacillus Acidophilus for UTI treatment and prophylaxis respectively. At time of DC, ptn was medically stable to go home. Minutes to complete discharge: 36 Discharge Summary Problems reviewed: Yes Reason For Visit: FEVER, PYELONEPHRITIS Condition: Stable - Instructions Diet, Activity, Other Instructions: Your visit: You were admitted to the hospital for a urinary tract infection and a kidney infection. You were treated with antibiotics which improved your symptoms, and you no longer had a fever at the time of discharge. Of note, imaging done during your stay showed evidence of constipation in addition to your kidney injury. Medications changes: -Please Start taking Levaquin 500mg once a day for 7 days. -Please Start taking Lactobacillus one pill per day. -NOTE: PLEASE TAKE LEVAQUIN AND LACTOBACILLUS AT LEAST 12 HOURS APART FROM EACH OTHER Follow up: - Please follow-up with Dr. Willem Pineda (Infectious Disease) in 2 weeks. - Visit with your Primary Care Provider in 2 weeks. If you do not have a primary care provider you may make an appointment with Dr. Arvind Ortiz at the [facility] clinic located at [address] [place] [address] ([phone]). Additional Instructions: -You are being discharged to your home -Please return to the Emergency Department if you experience worsening pain, fevers, chills, shortness of breath, or chest pain, or if you experience any worsening, new or concerning symptoms. Referrals: Willem Pineda MD [Staff Physician] - 2 Weeks Disposition: HOME - Home Medications Comprehensive Discharge Medication List: Ambulatory Orders Lactobacillus Acidophilus [Acidophilus] 1 each PO DAILY 30 Days #30 tablet 11/24/19 Levofloxacin [Levaquin] 500 mg PO DAILY 7 Days #7 tablet 11/24/19 This patient is new to me today: No Emergency Visit: No Critical Care patient: No - Discharge Referral Referred to [facility] Med P.C.: No ATTENDING PHYSICIAN STATEMENT I saw and evaluated the patient. I reviewed the resident's note and discussed the case with the resident. I agree with the resident's findings and plan as documented. SUBJECTIVE: OBJECTIVE: ASSESSMENT AND PLAN:
== END 2019-11-24 16:47 | disposition home or self-care (01) | DRG 720 ==
LOC: JER 14:33 → JERBED 19:14 → J8W 23:28
PROVIDERS: ADMIT Internal Medicine; ATTEND Internal Medicine
DX: A41.51 Sepsis due to Escherichia coli [E. coli] (principal); N10 Acute pyelonephritis; R00.0 Tachycardia, unspecified; D72.829 Elevated white blood cell count, unspecified; K59.00 Constipation, unspecified; D69.6 Thrombocytopenia, unspecified
CPT/HCPCS: 36415; 74177-TC; 80048; 80053; 81003; 83605; 83690; 83735; 84100; 84703; 85025; 85027; 87040; 87086; 87186; 87491; 87591; 99285-25; Q9967; U0003

== ENCOUNTER 2022-11-20 12:54 | Emergency (ER) | payer OTHER ==
[2022-11-20 13:00] VITALS: BP 95/64; PULSE 82; RESP 18; TEMP 98.8; BMI 21.4
[2022-11-20] MEDS ORDERED: ACETAMINOPHEN 325 MG TABLET (FP) PO ONE (14:48)
[2022-11-20 14:55] LABS: URINE APPEARANCE CLEAR; URINE BILIRUBIN NEGATIVE (NEGATIVE); URINE COLOR YELLOW; URINE GLUCOSE (UA) NEGATIVE (NEGATIVE); URINE KETONE NEGATIVE (NEGATIVE); URINE LEUK ESTERASE NEGATIVE (NEGATIVE); URINE NITRITE NEGATIVE (NEGATIVE); URINE PROTEIN NEGATIVE (NEGATIVE)
[2022-11-20] MEDS ORDERED: ACETAMINOPHEN 325 MG TABLET (FP) ONE (15:05)
[2022-11-20 16:29] LABS: BASO % 0.1 % (0-2.0); EOS % 1.1 % (0-4.5); HEMATOCRIT 35.3 % (32.4-45.2); HEMOGLOBIN 11.8 GM/dL (10.7-15.3); LYMPH % 26.7 % (8-40); MCH 29.1 pg (25.7-33.7); MCHC 33.4 g/dl (32.0-36.0); MEAN CELL VOLUME 87.2 fl (80-96); MEAN PLT VOLUME 8.4 fl (7.5-11.1); MONO % 11.1 % (3.8-10.2); PLATELET COUNT 159 10^3/uL (134-434); RBC 4.04 M/mm3 (3.60-5.2); RDW 13.3 % (11.6-15.6); WHITE BLOOD COUNT 5.8 K/mm3 (4.0-10.0)
[2022-11-20 17:16] LABS: POTASSIUM 4.1 mmol/L (3.5-5.1)
[2022-11-20 17:19] LABS: ALBUMIN 3.7 g/dl (3.4-5.0); CALCIUM 8.9 mg/dL (8.5-10.1); MAGNESIUM 2.1 mg/dL (1.8-2.4)
[2022-11-20 17:20] LABS: BLOOD UREA NITROGEN 19.4 mg/dL (7-18)
[2022-11-20 17:22] LABS: CREATININE 0.9 mg/dL (0.55-1.3)
[2022-11-20 17:24] LABS: BILIRUBIN,TOTAL 0.4 mg/dL (0.2-1); TOT PROT 7.1 g/dl (6.4-8.2)
== END 2022-11-20 18:13 | disposition home or self-care (01) ==
LOC: JER 12:54
DX: R53.81 Other malaise (principal); R09.81 Nasal congestion; R10.31 Right lower quadrant pain; U07.1 COVID-19; M54.9 Dorsalgia, unspecified
CPT/HCPCS: 36415; 80053; 81003; 83690; 83735; 84703; 85025; 87086; 87635; 99283-25